=== PATIENT | male | born 1935 ===

== ENCOUNTER 2022-07-19 18:04 | Inpatient (IN) | payer OTHER ==
[~2022-07-19] VITALS: Ht 165.1 cm; Wt 53.0 kg
[2022-07-19 18:36] LABS: Basophils # (auto) 0 10 ^3/uL (0-0.2); Basophils % (auto) 0.8 % (0.0-2.0); Eosinophils # (auto) 0.1 10 ^3/uL (0-0.8); Eosinophils % (auto) 1.3 % (0.0-7.0); Hematocrit 37.4 % (41.0-53.0); Hemoglobin 12.3 g/dL (13.5-17.5); Lymphocytes # (auto) 1.3 10 ^3/uL (0.4-5.4); Lymphocytes % (auto) 27.9 % (10.0-50.0); Mean Corpuscular Hemoglobin 29.2 pg (28.0-32.0); Mean Corpuscular Hgb Conc. 32.9 g/dL (32.0-36.0); Mean Corpuscular Volume 88.7 fL (80.0-100.0); Monocytes # (auto) 0.5 10 ^3/uL (0-1.3); Monocytes % (auto) 11.6 % (0.0-12.0); Neutrophils # (auto) 2.7 10 ^3/uL (1.6-8.6); Neutrophils % (auto) 58.4 % (37.0-80.0); Nucleated Red Blood Cells % 0.1 %; Red Blood Cells 4.22 10^6/uL (4.5-5.90); Red Cell Distribution Width 14.7 % (11.8-14.3); White Blood Cell 4.6 10^3/uL (4.4-10.8)
[2022-07-19 18:49] LABS: Albumin 3.5 g/dL (3.4-5.0); Calcium 8.9 mg/dL (8.5-10.1); Magnesium 2.4 mg/dL (1.6-2.6); Potassium 4.3 mmol/L (3.5-5.1)
[2022-07-19 18:53] LABS: BUN/Creatinine Ratio 25.3 (10.0-20.0); Bilirubin, Total 0.4 mg/dL (0.2-1.0)
[2022-07-19 19:45] LABS: INR 1.08 (0.9-1.15); Partial Thromboplastin Time 32.6 sec (24.6-33.4)
[2022-07-19] MEDS ORDERED: SODIUM CHLORIDE 0.9% 500 ML IV ONE (19:45)
[2022-07-19] MEDS ORDERED: NITROGLYCERIN 0.4 MG SL TAB SL ONE (19:45)
[2022-07-19] MEDS ORDERED: ASPirin 325 MG TAB PO ONE (19:45)
[2022-07-19] MEDS ORDERED: DOCUSATE SOD 100 MG CAP PO PRN (20:45)
[2022-07-19] MEDS ORDERED: ACETAMINOPHEN 325 MG TAB PO PRN (20:45)
[2022-07-19] MEDS ORDERED: HEPARIN SODIUM (PORCINE) 5000 UNITS/ML 1ML VIAL SC ONE (20:45)
[2022-07-19] MEDS ORDERED: ONDANSETRON HCL 4 MG/2 ML VIAL IV PRN (20:45)
[2022-07-19] MEDS ORDERED: MORPHINE SULFATE INJ 2 MG/ml SYRG IV PRN ×2 (20:45→22:15)
[2022-07-19] MEDS ORDERED: HEPARIN SODIUM (PORCINE) 5000 UNITS/ML 1ML VIAL IV ONE (22:15)
[2022-07-19] MEDS ORDERED: HEPARIN DRIP/D5W 100UNITS/ML 250 ML IV SCH (22:15)
[2022-07-19] MEDS ORDERED: NITROGLYCERIN 0.4 MG SL TAB SL PRN (22:15)
[2022-07-19 23:24] LABS: INR 1.12 (0.9-1.15)
[2022-07-20] MEDS: ATORVASTATIN 20 MG TAB PO SCH ×2 (00:41→21:17)
[2022-07-20 03:45] VITALS: BP 145/56
[2022-07-20 06:21] LABS: Basophils # (auto) 0 10 ^3/uL (0-0.2); Basophils % (auto) 0.7 % (0.0-2.0); Eosinophils # (auto) 0.1 10 ^3/uL (0-0.8); Eosinophils % (auto) 1.6 % (0.0-7.0); Hematocrit 33.3 % (41.0-53.0); Hemoglobin 11.4 g/dL (13.5-17.5); Lymphocytes # (auto) 1.4 10 ^3/uL (0.4-5.4); Lymphocytes % (auto) 34.3 % (10.0-50.0); Mean Corpuscular Hemoglobin 30.1 pg (28.0-32.0); Mean Corpuscular Hgb Conc. 34.1 g/dL (32.0-36.0); Mean Corpuscular Volume 88.3 fL (80.0-100.0); Monocytes # (auto) 0.5 10 ^3/uL (0-1.3); Monocytes % (auto) 11.1 % (0.0-12.0); Neutrophils # (auto) 2.2 10 ^3/uL (1.6-8.6); Neutrophils % (auto) 52.3 % (37.0-80.0); Nucleated Red Blood Cells % 0.1 %; Red Blood Cells 3.77 10^6/uL (4.5-5.90); Red Cell Distribution Width 14.5 % (11.8-14.3); White Blood Cell 4.2 10^3/uL (4.4-10.8)
[2022-07-20 06:46] LABS: Albumin 2.7 g/dL (3.4-5.0); Calcium 7.3 mg/dL (8.5-10.1); Potassium 3.5 mmol/L (3.5-5.1)
[2022-07-20 06:50] LABS: BUN/Creatinine Ratio 28.6 (10.0-20.0); Bilirubin, Total 0.4 mg/dL (0.2-1.0); Total Protein 4.9 g/dL (6.4-8.2)
[2022-07-20 06:57] LABS: INR 1.24 (0.9-1.15)
[2022-07-20 07:06] LABS: Partial Thromboplastin Time 132.4 sec (24.6-33.4)
[2022-07-20] MEDS: HEPARIN DRIP/D5W 100UNITS/ML 250 ML IV SCH ×2 (08:07→21:43)
[2022-07-20 09:00] VITALS: BP 129/54
[2022-07-20] MEDS ORDERED: HEPARIN SODIUM (PORCINE) 5000 UNITS/ML 1ML VIAL SC SCH (10:00)
[2022-07-20] MEDS: ASPirin 81 mg TAB PO SCH (11:27)
[2022-07-20] MEDS: FAMOTIDINE (10MG/ML) 2ML VL IV SCH (11:29)
[2022-07-20 13:00] VITALS: BP 118/53
[2022-07-20] MEDS: SODIUM CHLORIDE 0.9% 1,000 ML IV SCH ×2 (13:25)
[2022-07-20 14:21] LABS: INR 1.12 (0.9-1.15); Partial Thromboplastin Time 64.8 sec (24.6-33.4)
[2022-07-20] MEDS ORDERED: BACITRACIN TOP OINT 1 UD PKG TOP ONE (16:00)
[2022-07-20] MEDS: HYDROcodone-ACET 5/325MG TAB PO PRN (16:32)
[2022-07-20 17:00] VITALS: BP 142/53
[2022-07-20 21:30] LABS: INR 1.12 (0.9-1.15)
[2022-07-20 21:38] LABS: Partial Thromboplastin Time 77.2 sec (24.6-33.4)
[2022-07-20 21:49] VITALS: BP 116/52
[2022-07-21 03:17] LABS: INR 1.11 (0.9-1.15); Partial Thromboplastin Time 34.6 sec (24.6-33.4)
[2022-07-21] MEDS ORDERED: HEPARIN DRIP/D5W 100UNITS/ML 250 ML IV SCH (03:50)
[2022-07-21] MEDS ORDERED: HEPARIN SODIUM (PORCINE) 5000 UNITS/ML 1ML VIAL IV ONE (03:50)
[2022-07-21 05:00] VITALS: BP 136/47
[2022-07-21] MEDS: SODIUM CHLORIDE 0.9% 1,000 ML IV SCH ×2 (06:28→22:45)
[2022-07-21 09:06] VITALS: BP 129/69
[2022-07-21 11:00] LABS: INR 1.13 (0.9-1.15)
[2022-07-21 11:08] LABS: Partial Thromboplastin Time 97.6 sec (24.6-33.4)
[2022-07-21] MEDS: HYDROcodone-ACET 5/325MG TAB PO PRN (11:18)
[2022-07-21] MEDS: ASPirin 81 mg TAB PO SCH (11:21)
[2022-07-21] MEDS: FAMOTIDINE (10MG/ML) 2ML VL IV SCH (11:28)
[2022-07-21] MEDS: HEPARIN DRIP/D5W 100UNITS/ML 250 ML IV SCH ×3 (11:28→20:31)
[2022-07-21 16:53] VITALS: BP_SYST 149; BP_SYST 88; BP_DIAS 46; BP_DIAS 57
[2022-07-21 19:06] LABS: INR 1.08 (0.9-1.15); Partial Thromboplastin Time 37.8 sec (24.6-33.4)
[2022-07-21] MEDS: ATORVASTATIN 20 MG TAB PO SCH (20:47)
[2022-07-21 22:00] VITALS: BP 145/56
[2022-07-22] VITALS (7 sets, daily range): BP systolic 107–173; BP diastolic 47–79
[2022-07-22 02:54] LABS: INR 1.1 (0.9-1.15); Partial Thromboplastin Time 49.9 sec (24.6-33.4)
[2022-07-22 03:55] LABS: Urine WBC None Seen /hpf (0 - 3)
[2022-07-22 04:01] LABS: Urine Bacteria NONE SEEN /hpf (None Seen); Urine Blood TRACE /uL (Negative)
[2022-07-22 05:50] LABS: INR 1.13 (0.9-1.15); Partial Thromboplastin Time 54.9 sec (24.6-33.4)
[2022-07-22] MEDS: HEPARIN DRIP/D5W 100UNITS/ML 250 ML IV SCH ×2 (06:41→13:25)
[2022-07-22] MEDS: HYDROcodone-ACET 5/325MG TAB PO PRN ×2 (08:53→18:31)
[2022-07-22] MEDS: ASPirin 81 mg TAB PO SCH (10:46)
[2022-07-22 12:49] LABS: INR 1.12 (0.9-1.15); Partial Thromboplastin Time 49.5 sec (24.6-33.4)
[2022-07-22] MEDS ORDERED: fentaNYL CITRATE 100 MCG/2 ML VL ONE (15:45)
[2022-07-22] MEDS ORDERED: ANGIOMAX 250 MG VIAL IV ONE (15:45)
[2022-07-22] MEDS ORDERED: SODIUM CHL 0.9% 50 ML ONE (15:46)
[2022-07-22] MEDS ORDERED: MIDAZOLAM HCL 2MG/2ML 2ml VIAL (1mg/ml) ONE (15:46)
[2022-07-22] MEDS ORDERED: LIDOCAINE 2%HCL (LOCAL ANESTH.) INJ 20ML MDV ONE (15:46)
[2022-07-22] MEDS ORDERED: IODIXANOL 320MG/ML 100ML BTL IV ONE ×2 (15:46→17:01)
[2022-07-22] MEDS ORDERED: VERAPAMIL 2.5MG/ML INJ 2ML VIAL IV ONE (15:49)
[2022-07-22] MEDS ORDERED: CLOPIDOGREL 300 MG TAB ONE (17:03)
[2022-07-22] MEDS: ATORVASTATIN 20 MG TAB PO SCH (21:18)
[2022-07-23] MEDS: HYDROcodone-ACET 5/325MG TAB PO PRN (03:38)
[2022-07-23] MEDS: SODIUM CHLORIDE 0.9% 1,000 ML IV SCH ×2 (03:40→09:46)
[2022-07-23 05:00] VITALS: BP 107/50
[2022-07-23 05:43] LABS: Basophils # (auto) 0 10 ^3/uL (0-0.2); Basophils % (auto) 0.2 % (0.0-2.0); Eosinophils # (auto) 0 10 ^3/uL (0-0.8); Eosinophils % (auto) 0.3 % (0.0-7.0); Hemoglobin 14.1 g/dL (13.5-17.5); Lymphocytes # (auto) 1.3 10 ^3/uL (0.4-5.4); Lymphocytes % (auto) 19.2 % (10.0-50.0); Mean Corpuscular Hemoglobin 30.4 pg (28.0-32.0); Mean Corpuscular Hgb Conc. 34.4 g/dL (32.0-36.0); Mean Corpuscular Volume 88.4 fL (80.0-100.0); Monocytes # (auto) 0.8 10 ^3/uL (0-1.3); Monocytes % (auto) 11.9 % (0.0-12.0); Neutrophils # (auto) 4.7 10 ^3/uL (1.6-8.6); Neutrophils % (auto) 68.4 % (37.0-80.0); Red Blood Cells 4.63 10^6/uL (4.5-5.90); Red Cell Distribution Width 14.7 % (11.8-14.3); White Blood Cell 6.9 10^3/uL (4.4-10.8)
[2022-07-23 05:59] LABS: BUN/Creatinine Ratio 17.9 (10.0-20.0); Calcium 8.9 mg/dL (8.5-10.1); Potassium 3.9 mmol/L (3.5-5.1)
[2022-07-23 08:00] VITALS: BP 122/56
[2022-07-23 09:00] VITALS: BP 122/56
[2022-07-23] MEDS: ASPirin 81 mg TAB PO SCH (09:39)
[2022-07-23] MEDS ORDERED: LISI2.5T47 PO (09:48)
[2022-07-23] MEDS ORDERED: METO25TA36 PO (09:48)
[2022-07-23] MEDS ORDERED: ATOR20TA PO (09:48)
[2022-07-23] MEDS ORDERED: CLOP75TA28 PO (09:48)
[2022-07-23] MEDS ORDERED: ASPI1TAB20 PO (09:48)
[2022-07-23] MEDS ORDERED: LISINOPRIL 5 MG TAB PO SCH (10:00)
[2022-07-23] MEDS ORDERED: CLOPIDOGREL BISULFATE 75 MG TAB PO SCH (10:00)
[2022-07-23] MEDS ORDERED: METOPROLOL SUCCINATE XL 50 MG TAB PO SCH (10:00)
== END 2022-07-23 14:52 | disposition home or self-care (01) | DRG 247 ==
LOC: ER 18:04 → EDBD 18:04 → TELE 22:06 → TELE-EAST 07-20 03:26
PROVIDERS: ADMIT Nurse Practitioner Family; ATTEND Internal Medicine Geriatric Medicine
PROC: 027034Z Dilation of Coronary Artery, One Artery with Drug-eluting Intraluminal Device, Percutaneous Approach (ICD-10-PCS; principal; 2022-07-22)
PROC: 02C03ZZ Extirpation of Matter from Coronary Artery, One Artery, Percutaneous Approach (ICD-10-PCS; 2022-07-22)
PROC: 4A023N7 Measurement of Cardiac Sampling and Pressure, Left Heart, Percutaneous Approach (ICD-10-PCS; 2022-07-22)
PROC: B211YZZ Fluoroscopy of Multiple Coronary Arteries using Other Contrast (ICD-10-PCS; 2022-07-22)
DX: I21.4 Non-ST elevation (NSTEMI) myocardial infarction (principal); E44.0 Moderate protein-calorie malnutrition; Z68.1 Body mass index [BMI] 19.9 or less, adult; I25.10 Atherosclerotic heart disease of native coronary artery without angina pectoris; K59.00 Constipation, unspecified; G89.4 Chronic pain syndrome; M54.50 Low back pain, unspecified; Z85.828 Personal history of other malignant neoplasm of skin
CPT/HCPCS: 36415; 37187; 71045; 80048; 80053; 81001; 83735; 83880; 84484; 85025; 85379; 85610; 85730; 86850; 86900; 86901; 92978; 93005; 93306; 93458; 99152; 99153; G0378; J2250; J3490; Q9967